=== PATIENT | male | born 2000 | race Asian ===

== ENCOUNTER 2019-08-08 09:00 | Inpatient (IN) | payer OTHER ==
[~2019-08-08] VITALS: Ht 165.1 cm; Wt 65.1 kg
[2019-08-08 09:57] LABS: HEMATOCRIT 42.1 % (42.0-52.0); HEMOGLOBIN 14.1 g/dl (13.5-17.5); MEAN CORPUSCULAR HEMOGLOBIN 30.1 pg (27.0-33.0); MEAN CORPUSCULAR HGB CONC 33.5 g/dl (32.0-36.5); PLATELET COUNT, AUTOMATED 279 10^3/uL (150-450); RED BLOOD COUNT 4.68 10^6/uL (4.30-6.10); WHITE BLOOD COUNT 5.8 10^3/uL (4.0-10.0)
[2019-08-08 10:32] LABS: ACETAMINOPHEN LEVEL < 2.0 UG/ML (10.0-30.0); ALT/SGPT 28 U/L (12-78); BILIRUBIN,DIRECT 0.2 MG/DL (0.0-0.2); BILIRUBIN,TOTAL 0.9 MG/DL (0.2-1.0); BLOOD UREA NITROGEN 19 MG/DL (7-18); CALCIUM LEVEL 8.8 MG/DL (8.5-10.1); CARBON DIOXIDE LEVEL 26 MEQ/L (21-32); CHLORIDE LEVEL 106 MEQ/L (98-107); CREATININE FOR GFR 0.94 MG/DL (0.70-1.30); ETHYL ALCOHOL (ETHANOL) < 0.003 % (0.000-0.010); GLUCOSE, FASTING 89 MG/DL (70-100); POTASSIUM SERUM 3.8 MEQ/L (3.5-5.1); SALICYLATE LEVEL < 1.7 MG/DL (5.0-30.0); SODIUM LEVEL 140 MEQ/L (136-145)
[2019-08-08 10:46] LABS: AMPHETAMINES LEVEL URINE NEGATIVE (NEGATIVE); BARBITURATES URINE NEGATIVE (NEGATIVE); BENZODIAZEPINES URINE NEGATIVE (NEGATIVE); CANNABINOIDS URINE NEGATIVE (NEGATIVE); COCAINE METABOLITE URINE NEGATIVE (NEGATIVE); METHADONE URINE NEGATIVE (NEGATIVE); OPIATES URINE NEGATIVE (NEGATIVE); PHENCYCLIDINE URINE NEGATIVE (NEGATIVE)
[2019-08-08] MEDS ORDERED: MAALOX 30 ML SUSP *UDC PO PRN (16:30)
[2019-08-08] MEDS ORDERED: ACETAMINOPHEN TAB 650MG DOSE (2X325MG) PO PRN (16:30)
[2019-08-08] MEDS ORDERED: MOM 30ML SUSPENSION UDC PO PRN (16:30)
[2019-08-08] MEDS ORDERED: traZODone 50 MG TAB PO PRN (16:30)
[2019-08-08 17:45] VITALS: BP 129/78
[2019-08-09 06:43] VITALS: BP 128/59
[2019-08-09] MEDS: buPROPion **XL** TABLET 150MG (WELLBUTRIN XL) PO SCH (09:44)
[2019-08-09 16:22] VITALS: BP 124/58
[2019-08-10 06:47] VITALS: BP 122/62
[2019-08-10] MEDS: buPROPion **XL** TABLET 150MG (WELLBUTRIN XL) PO SCH (09:51)
[2019-08-10 16:05] VITALS: BP 116/58
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
[2019-08-11 06:39] VITALS: BP_SYST 92; BP_DIAS 48; BP_DIAS 58
[2019-08-11] MEDS: buPROPion **XL** TABLET 150MG (WELLBUTRIN XL) PO SCH (09:50)
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
[2019-08-11 16:46] VITALS: BP 122/56
--- NOTE | 2019-08-11 18:33 | MHIPN ---
DATE: 08/10/2019 SUBJECTIVE: "I'm feeling better, my friends from [employer] came and visited me yesterday." OBJECTIVE: He is a 18-year-old male who came for worsening of his depression and suicidal thoughts. He had plans to overdose or cut himself. His stressors are mostly family related as well as work related. He is currently on Wellbutrin XL 150 mg once daily. Denies any side effects from the medication. Reports he slept well. MENTAL STATUS EXAMINATION: Casually dressed, cooperative, made good eye contact. Psychomotor activity is normal. Mood is depressed. Affect is somewhat constricted. Speech: Rate, rhythm and volume are good. Thought process: Linear, goal-directed. Thought content: Denied any delusions. Denied suicidal or homicidal ideas. Memory: Remote, recent and immediate are good. Alert and oriented to time, place, and person. Insight and judgment are fair. VITAL SIGNS: Temperature 98.0, pulse is 42, respiratory rate is 16, blood pressure is 122/62. REVIEW OF SYSTEMS: Denied chest pain or palpitations. Denied abdominal pain or dysuria. Denied cough or shortness of breath. Denied dizziness, numbness, tingling. Gait is normal. DIAGNOSES: 1. Depressive disorder, unspecified. 2. Rule out major depressive disorder. PLAN: Continue current medication. Continue individual, group and milieu therapy. ESTIMATED LENGTH OF STAY: 3-4 days.
[2019-08-12 07:12] VITALS: BP 115/56
[2019-08-12] MEDS: buPROPion **XL** TABLET 150MG (WELLBUTRIN XL) PO SCH (08:35)
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
[2019-08-12 16:48] VITALS: BP 114/58
[2019-08-13 06:37] VITALS: BP 141/65
[2019-08-13] MEDS: buPROPion **XL** TABLET 150MG (WELLBUTRIN XL) PO SCH (08:45)
[2019-08-13] MEDS ORDERED: BUPR150T3 PO (08:51)
[2019-08-13] MEDS ORDERED: TRAZ-252 PO (08:51)
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
== END 2019-08-13 10:40 | disposition home or self-care (01) | DRG 881 ==
LOC: M ED 09:00 → M ED INP 16:18 → M PSY 16:49
PROVIDERS: ADMIT Psychiatry & Neurology Psychiatry; ATTEND Psychiatry & Neurology Psychiatry
DX: F32.9 Major depressive disorder, single episode, unspecified (principal); R45.851 Suicidal ideations; Z91.82 Personal history of military deployment